=== PATIENT | male | born 1980 | race Caucasian/White ===

== ENCOUNTER → 2020-05-11 | Outpatient (CLI) | payer OTHER ==
[2020-05-11 11:26] LABS: Basophils # (A) 0.1 k/uL (0-0.2); Basophils % (A) 1 %; Eosinophils # (A) 0.2 k/uL (0-0.7); Eosinophils % (A) 3 %; HCT 42.6 % (39.0-53.0); HGB 14.2 gm/dL (13.0-17.5); Lymphocytes # (A) 1.9 k/uL (1.0-4.8); Lymphocytes % (A) 23 %; MCHC 33.4 g/dL (31.0-37.0); MCV 89.9 fL (80.0-100.0); Mean Platelet Volume 7.8; Monocytes # (A) 0.5 k/uL (0-1.0); Monocytes % (A) 6 %; Neutrophils # (A) 5.4 k/uL (1.3-7.7); Neutrophils % (A) 65 %; Platelet Count 267 k/uL (150-450); RBC 4.74 m/uL (4.30-5.90); RDW 12.8 % (11.5-15.5); WBC 8.3 k/uL (3.8-10.6)
[2020-05-11 11:53] LABS: ALT 25 U/L (4-49); AST 26 U/L (17-59); African American GFR (CKD) >90 (>60 ml/min/1.73 sqM); Albumin 3.7 g/dL (3.5-5.0); Alkaline Phosphatase 103 U/L (38-126); Anion Gap 3 mmol/L; Blood Urea Nitrogen 14 mg/dL (9-20); Carbon Dioxide 30 mmol/L (22-30); Chloride 106 mmol/L (98-107); Glucose 94 mg/dL (74-99); Non-African American GFR(CKD) >90 (>60 ml/min/1.73 sqM); Sodium 139 mmol/L (137-145); Total Bilirubin 0.3 mg/dL (0.2-1.3); Total Protein 6.8 g/dL (6.3-8.2)
--- NOTE | 2020-05-11 15:53 | EEG ---
ELECTROENCEPHALOGRAM REPORT DATE OF SERVICE: 05/11/2020 PREAMBLE: This is a 39-year-old male who had a syncopal spell at work. He felt lightheaded for about 2-5 seconds before and wanted to say something to his coworkers of not feeling well before he passed out. Apparently, CPR was started by EMS because he did not have a rhythm. He was taken to [facility], admitted for a day and then discharged. Patient had EEG to evaluate for any epileptiform activity. EEG FINDINGS: This is a 21 channel routine EEG recording in a patient utilizing 10-20 international system with referential and bipolar montages. Background consists of well- developed, well-regulated, moderate voltage activity in 9-10 hertz alpha. Background is posterior dominant and reactive to eye opening and closing. Photic driving response was seen with some flash frequencies. Hyperventilation revealed no abnormalities. Drowsiness was obtained with appearance of bilaterally symmetric theta frequency rhythm. Stage 2 sleep was obtained with presence of vertex waves, K complexes and sleep spindles. Some left temporal sharp-appearing waves were seen, but did not appear epileptiform. EKG channel lead revealed no arrhythmia. No definitive epileptiform activity was seen. IMPRESSION: This is a normal awake, drowsy, and sleep EEG. No focal, lateralized or epileptiform activity was seen. If your suspicion for seizures is high, consider prolonged, sleep- deprived EEG. MMODL / IJN: [id number] / [facility]
[2020-05-11 19:20] LABS: Hemoglobin A1C 5.4 % (4.0-6.0)
== END | disposition home or self-care (01) ==
LOC: NEUROMAIN 09:20
PROVIDERS: ATTEND Family Medicine
DX: R55 Syncope and collapse (principal); E66.9 Obesity, unspecified; Z68.41 Body mass index [BMI] 40.0-44.9, adult
CPT/HCPCS: 80053; 83036; 85025; 87040; 95819